=== PATIENT | female | born 1980 | race African-American/Black ===

== ENCOUNTER 2016-12-03 21:42 | Emergency (ER) | payer MEDICAID ==
[2016-12-03] MEDS ORDERED: SYNTHROID125 MCG PO (21:53)
[2016-12-03] MEDS ORDERED: ORPHENADRINE100 MG PO (22:51)
[2016-12-03] MEDS ORDERED: PERCOCET 5/325M1 TAB PO (22:51)
[2016-12-03 22:54] VITALS: BP 119/79
== END 2016-12-03 22:54 | disposition home or self-care (01) | DRG 552 ==
LOC: ED 21:42
DX: S16.1XXA Strain of muscle, fascia and tendon at neck level, initial encounter (principal); E03.9 Hypothyroidism, unspecified; V49.40XA Driver injured in collision with unspecified motor vehicles in traffic accident, initial encounter